=== PATIENT | female | born 1975 | race Caucasian/White ===

== ENCOUNTER 2018-10-14 19:25 | Inpatient (IN) ==
[2018-10-14] MEDS ORDERED: SODIUM CHLORIDE 0.9% 500 ML IV STA (19:54)
[2018-10-14] MEDS ORDERED: KETOROLAC 30 MG/1 ML VIAL IV STA (20:28)
[2018-10-14] MEDS ORDERED: KETOROLAC 30 MG/1 ML VIAL ONE (20:28)
[2018-10-14 20:37] LABS: Hematocrit 39.8 VOL% (35.7-47.0); Immature Granulocytes % 0.4 %; Immature Granulocytes Absolute 0.04 #; Lymphocytes # 2.1 10*3/uL (1.4-4.0); Lymphocytes % 21.2 % (21.3-54.2); Mean Corpuscular HGB Conc 32.7 GM/DL (32-36); Mean Corpuscular Hemoglobin 29 PG (27-34); Mean Corpuscular Volume 89.8 FL (87-102); Mean Platelet Volume 8.9 FL (9.6-12.0); Monocytes # 1.1 10*3/uL (0.11-0.8); Monocytes % 10.8 % (1.7-12.7); Neutrophils # 6.7 10*3/uL (1.4-7.4); Neutrophils % 67.6 % (38.7-73.9); Platelet Count 226 T/CUMM (130-400); Red Blood Count 4.43 MC/CUMM (3.8-5.5); Red Cell Distribution Width 11.7 % (9.3-17.3)
[2018-10-14 20:48] LABS: PT Patient Result 10.5 SECS
[2018-10-14 20:58] LABS: Lactic Acid 1.7 MMOL/L (0.4-2.0)
[2018-10-14 21:00] LABS: Alanine Aminotransferase 24 U/L (13-56); Albumin 3.8 G/DL (3.4-5.0); Alkaline Phosphatase 94 U/L (45-117); Amylase 32 U/L (25-115); Aspartate Amino Transferase 18 U/L (0-37); Blood Urea Nitrogen 10 MG/DL (7-18); Calcium 8.8 MG/DL (8.5-10.1); Glucose 89 MG/DL (74-106); Osmolality,Calculated 270.8 MOS/KG (273-304); Potassium 4.2 MMOL/L (3.5-5.1); Sodium 137 MMOL/L (136-145); Total Protein 8.2 G/DL (6.4-8.3); Troponin I < 0.015 NG/ML (0.00-0.045)
[2018-10-14 21:22] LABS: Amorphous Crystals,Urine Occasional /HPF (Few); Apearance,Urine CLOUDY (Clear); Bilirubin,Urine Negative (Negative); Blood, Urine Small mg/dL (Negative); Glucose,Urine (UA) Negative (Negative); Ketones,Urine 5 mg/dL (Negative); Mucus,Urine Occasional /LPF (Occasional); Nitrite,Urine Negative (Negative); Protein,Urine Negative; Squamous Epithelial Cell,Urine Occasional /HPF (0-10); Urine Color Amber (Yellow)
[2018-10-14 21:42] LABS: Sedimentation Rate-Westergren 56 MM/HR (0-20)
[2018-10-14] MEDS ORDERED: PROMETHAZINE 25 MG/1 ML VIAL IM PRN (23:54)
[2018-10-14] MEDS ORDERED: ONDANSETRON 4 MG/2 ML VIAL IV PRN (23:54)
[2018-10-15] MEDS: DOXYCYCLINE HYCLATE 100 MG CAPSULE PO SCH ×3 (01:08→21:51)
[2018-10-15] MEDS: SODIUM CHLORIDE 0.9% 1,000 ML IV SCH ×2 (01:10→18:38)
[2018-10-15 05:28] LABS: Basophils % 0.1 % (0.0-0.8); Hematocrit 36.1 VOL% (35.7-47.0); Hemoglobin 11.8 GM/DL (12.0-16.0); Immature Granulocytes % 0.4 %; Immature Granulocytes Absolute 0.03 #; Lymphocytes # 1.8 10*3/uL (1.4-4.0); Lymphocytes % 22.1 % (21.3-54.2); Mean Corpuscular HGB Conc 32.7 GM/DL (32-36); Mean Corpuscular Hemoglobin 29 PG (27-34); Mean Corpuscular Volume 89.8 FL (87-102); Mean Platelet Volume 8.8 FL (9.6-12.0); Monocytes # 1.1 10*3/uL (0.11-0.8); Monocytes % 13.1 % (1.7-12.7); Neutrophils # 5.4 10*3/uL (1.4-7.4); Neutrophils % 64.3 % (38.7-73.9); Platelet Count 190 T/CUMM (130-400); Red Blood Count 4.02 MC/CUMM (3.8-5.5); Red Cell Distribution Width 11.6 % (9.3-17.3); White Blood Count 8.3 T/CUMM (4-12)
[2018-10-15 06:04] LABS: Calcium 7.9 MG/DL (8.5-10.1); Osmolality,Calculated 271.8 MOS/KG (273-304); Potassium 3.6 MMOL/L (3.5-5.1); Uric Acid 5.3 MG/DL (2.6-6.0)
[2018-10-15] MEDS: ENOXAPARIN 40 MG/0.4 ML SYRINGE SUBCUT SCH (08:11)
[2018-10-15] MEDS: VENLAFAXINE XR 75 MG CAPSULE PO SCH (08:11)
[2018-10-15] MEDS: PANTOPRAZOLE 40 MG TABLET PO SCH (08:12)
[2018-10-15] MEDS: TOPIRAMATE 25 MG TABLET PO SCH ×2 (08:12→21:51)
[2018-10-15] MEDS: MEMANTINE 10 MG TABLET PO SCH ×2 (08:12→21:51)
[2018-10-15] MEDS ORDERED: AMPHETAMINE PO SCH (09:00)
[2018-10-15] MEDS ORDERED: DEXTROAMPHETAMINE PO SCH (09:00)
[2018-10-15] MEDS: MORPHINE 4 MG/1 ML VIAL IV PRN (10:02)
[2018-10-15] MEDS ORDERED: LIDOCAINE 1% 20 ML VIAL INFILTRAT ONE (10:55)
[2018-10-15 19:50] LABS: HIV Antigen/Antibody Result Nonreactive (Nonreactive)
[2018-10-15] MEDS: MAGNESIUM OXIDE 400 MG TABLET PO SCH (21:51)
[2018-10-15] MEDS: AMITRIPTYLINE 100 MG TABLET PO SCH (21:51)
[2018-10-16] MEDS: SODIUM CHLORIDE 0.9% 1,000 ML IV SCH ×2 (02:51→16:07)
[2018-10-16 05:31] LABS: Hematocrit 35.6 VOL% (35.7-47.0); Hemoglobin 11.6 GM/DL (12.0-16.0); Immature Granulocytes % 0.3 %; Immature Granulocytes Absolute 0.02 #; Lymphocytes # 2.2 10*3/uL (1.4-4.0); Lymphocytes % 29.7 % (21.3-54.2); Mean Corpuscular HGB Conc 32.6 GM/DL (32-36); Mean Corpuscular Hemoglobin 29 PG (27-34); Mean Corpuscular Volume 89.4 FL (87-102); Mean Platelet Volume 8.9 FL (9.6-12.0); Monocytes # 0.9 10*3/uL (0.11-0.8); Monocytes % 11.7 % (1.7-12.7); Neutrophils # 4.4 10*3/uL (1.4-7.4); Neutrophils % 58.3 % (38.7-73.9); Platelet Count 192 T/CUMM (130-400); Red Blood Count 3.98 MC/CUMM (3.8-5.5); Red Cell Distribution Width 11.5 % (9.3-17.3); White Blood Count 7.5 T/CUMM (4-12)
[2018-10-16 05:47] LABS: Calcium 8.2 MG/DL (8.5-10.1); Osmolality,Calculated 273.5 MOS/KG (273-304); Potassium 3.2 MMOL/L (3.5-5.1)
[2018-10-16] MEDS ORDERED: BISACODYL 10 MG SUPP RECTAL PRN (09:25)
[2018-10-16] MEDS: ENOXAPARIN 40 MG/0.4 ML SYRINGE SUBCUT SCH (10:07)
[2018-10-16] MEDS: VENLAFAXINE XR 75 MG CAPSULE PO SCH (10:07)
[2018-10-16] MEDS: PANTOPRAZOLE 40 MG TABLET PO SCH (10:08)
[2018-10-16] MEDS: MEMANTINE 10 MG TABLET PO SCH ×2 (10:08→21:50)
[2018-10-16] MEDS: TOPIRAMATE 25 MG TABLET PO SCH ×2 (10:08→21:50)
[2018-10-16] MEDS: DOXYCYCLINE HYCLATE 100 MG CAPSULE PO SCH ×2 (10:09→21:50)
[2018-10-16] MEDS: BISACODYL 5 MG TABLET PO SCH (21:50)
[2018-10-16] MEDS: AMITRIPTYLINE 100 MG TABLET PO SCH (21:50)
[2018-10-16] MEDS: MAGNESIUM OXIDE 400 MG TABLET PO SCH (21:50)
[2018-10-17] MEDS: SODIUM CHLORIDE 0.9% 1,000 ML IV SCH ×2 (05:00→18:35)
[2018-10-17 05:29] LABS: Hematocrit 34.6 VOL% (35.7-47.0); Hemoglobin 11.2 GM/DL (12.0-16.0); Immature Granulocytes % 0.3 %; Immature Granulocytes Absolute 0.02 #; Lymphocytes # 2.5 10*3/uL (1.4-4.0); Lymphocytes % 32.9 % (21.3-54.2); Mean Corpuscular HGB Conc 32.4 GM/DL (32-36); Mean Corpuscular Hemoglobin 29 PG (27-34); Mean Corpuscular Volume 88.7 FL (87-102); Mean Platelet Volume 9.1 FL (9.6-12.0); Monocytes # 0.9 10*3/uL (0.11-0.8); Monocytes % 11.6 % (1.7-12.7); Neutrophils # 4.2 10*3/uL (1.4-7.4); Neutrophils % 55.2 % (38.7-73.9); Platelet Count 227 T/CUMM (130-400); Red Cell Distribution Width 11.6 % (9.3-17.3); White Blood Count 7.7 T/CUMM (4-12)
[2018-10-17 05:43] LABS: Calcium 8.5 MG/DL (8.5-10.1)
[2018-10-17 05:44] LABS: Osmolality,Calculated 271.7 MOS/KG (273-304); Potassium 3.5 MMOL/L (3.5-5.1)
[2018-10-17] MEDS: VENLAFAXINE XR 75 MG CAPSULE PO SCH (08:59)
[2018-10-17] MEDS: ENOXAPARIN 40 MG/0.4 ML SYRINGE SUBCUT SCH (08:59)
[2018-10-17] MEDS: MEMANTINE 10 MG TABLET PO SCH ×2 (08:59→20:41)
[2018-10-17] MEDS: DOXYCYCLINE HYCLATE 100 MG CAPSULE PO SCH ×2 (09:00→20:40)
[2018-10-17] MEDS: PANTOPRAZOLE 40 MG TABLET PO SCH (09:00)
[2018-10-17] MEDS: TOPIRAMATE 25 MG TABLET PO SCH ×2 (09:04→20:41)
[2018-10-17 16:25] LABS: Ehrlichia Chaffeensis (HME)IgG <1:64 titer (<1:64)
[2018-10-17] MEDS: MAGNESIUM OXIDE 400 MG TABLET PO SCH (20:39)
[2018-10-17] MEDS: BISACODYL 5 MG TABLET PO SCH (20:40)
[2018-10-17] MEDS: AMITRIPTYLINE 100 MG TABLET PO SCH (20:41)
[2018-10-17] MEDS: MORPHINE 4 MG/1 ML VIAL IV PRN (22:09)
[2018-10-17 23:05] LABS: Bart Quintana IgG <1:128 titer (<1:128); Bart Quintana IgM <1:20 titer (<1:20)
[2018-10-18 06:00] LABS: Hemoglobin 11.2 GM/DL (12.0-16.0); Immature Granulocytes % 0.4 %; Immature Granulocytes Absolute 0.03 #; Lymphocytes # 1.9 10*3/uL (1.4-4.0); Lymphocytes % 26.7 % (21.3-54.2); Mean Corpuscular HGB Conc 32.9 GM/DL (32-36); Mean Corpuscular Hemoglobin 29 PG (27-34); Mean Corpuscular Volume 88.1 FL (87-102); Mean Platelet Volume 8.6 FL (9.6-12.0); Monocytes # 0.7 10*3/uL (0.11-0.8); Monocytes % 9.9 % (1.7-12.7); Neutrophils # 4.6 10*3/uL (1.4-7.4); Platelet Count 227 T/CUMM (130-400); Red Blood Count 3.86 MC/CUMM (3.8-5.5); Red Cell Distribution Width 11.7 % (9.3-17.3); White Blood Count 7.3 T/CUMM (4-12)
[2018-10-18 06:38] LABS: Calcium 8.3 MG/DL (8.5-10.1); Osmolality,Calculated 277.3 MOS/KG (273-304); Potassium 3.2 MMOL/L (3.5-5.1)
[2018-10-18] MEDS: SODIUM CHLORIDE 0.9% 1,000 ML IV SCH (06:45)
[2018-10-18] MEDS: MORPHINE 4 MG/1 ML VIAL IV PRN ×2 (09:02→15:01)
[2018-10-18] MEDS: ENOXAPARIN 40 MG/0.4 ML SYRINGE SUBCUT SCH (09:08)
[2018-10-18] MEDS: MEMANTINE 10 MG TABLET PO SCH ×2 (09:08→21:30)
[2018-10-18] MEDS: VENLAFAXINE XR 75 MG CAPSULE PO SCH (09:08)
[2018-10-18] MEDS: DOXYCYCLINE HYCLATE 100 MG CAPSULE PO SCH (09:09)
[2018-10-18] MEDS: TOPIRAMATE 25 MG TABLET PO SCH ×2 (09:09→21:30)
[2018-10-18] MEDS: PANTOPRAZOLE 40 MG TABLET PO SCH (09:09)
[2018-10-18] MEDS ORDERED: POTASSIUM CHLORIDE 20 MEQ TABLET PO ONE (10:49)
[2018-10-18] MEDS: cefTRIAXone 1,000 MG in SYRINGE 1 EACH IV SCH (15:30)
[2018-10-18] MEDS: VANCOMYCIN INJ 1,500 MG in SODIUM CHLORIDE 0.9% 500 ML IV SCH (15:35)
[2018-10-18] MEDS: BISACODYL 5 MG TABLET PO SCH (21:30)
[2018-10-18] MEDS: AMITRIPTYLINE 100 MG TABLET PO SCH (21:30)
[2018-10-18] MEDS: MAGNESIUM OXIDE 400 MG TABLET PO SCH (21:30)
[2018-10-19] MEDS: SODIUM CHLORIDE 0.9% 1,000 ML IV SCH ×4 (00:55→22:53)
[2018-10-19] MEDS: VANCOMYCIN INJ 1,500 MG in SODIUM CHLORIDE 0.9% 500 ML IV SCH ×2 (03:49→15:45)
[2018-10-19 05:11] LABS: Hematocrit 34.2 VOL% (35.7-47.0); Hemoglobin 11.3 GM/DL (12.0-16.0); Immature Granulocytes % 0.5 %; Immature Granulocytes Absolute 0.04 #; Lymphocytes # 2.1 10*3/uL (1.4-4.0); Lymphocytes % 27.2 % (21.3-54.2); Mean Corpuscular Hemoglobin 29 PG (27-34); Mean Corpuscular Volume 88.1 FL (87-102); Mean Platelet Volume 8.7 FL (9.6-12.0); Monocytes # 0.8 10*3/uL (0.11-0.8); Monocytes % 10.3 % (1.7-12.7); Neutrophils # 4.7 10*3/uL (1.4-7.4); Platelet Count 251 T/CUMM (130-400); Red Blood Count 3.88 MC/CUMM (3.8-5.5); Red Cell Distribution Width 11.6 % (9.3-17.3); White Blood Count 7.6 T/CUMM (4-12)
[2018-10-19 05:32] LABS: Albumin 2.9 G/DL (3.4-5.0); Bilirubin,Total 0.4 MG/DL (0.2-1.0); Calcium 8.4 MG/DL (8.5-10.1); Osmolality,Calculated 273.5 MOS/KG (273-304); Potassium 3.7 MMOL/L (3.5-5.1); Total Protein 6.9 G/DL (6.4-8.3)
[2018-10-19] MEDS: VENLAFAXINE XR 75 MG CAPSULE PO SCH (10:15)
[2018-10-19] MEDS: PANTOPRAZOLE 40 MG TABLET PO SCH (10:15)
[2018-10-19] MEDS: ENOXAPARIN 40 MG/0.4 ML SYRINGE SUBCUT SCH (10:15)
[2018-10-19] MEDS: TOPIRAMATE 25 MG TABLET PO SCH ×2 (10:15→21:42)
[2018-10-19] MEDS: MEMANTINE 10 MG TABLET PO SCH ×2 (10:16→21:43)
[2018-10-19] MEDS: MORPHINE 4 MG/1 ML VIAL IV PRN ×3 (14:40→22:46)
[2018-10-19] MEDS: cefTRIAXone 1,000 MG in SYRINGE 1 EACH IV SCH (15:40)
[2018-10-19] MEDS: MAGNESIUM OXIDE 400 MG TABLET PO SCH (21:42)
[2018-10-19] MEDS: AMITRIPTYLINE 100 MG TABLET PO SCH (21:43)
[2018-10-19] MEDS: BISACODYL 5 MG TABLET PO SCH (21:43)
[2018-10-20] MEDS: MORPHINE 4 MG/1 ML VIAL IV PRN ×3 (02:58→17:29)
[2018-10-20 03:11] LABS: Basophils % 0.1 % (0.0-0.8); Hemoglobin 11.6 GM/DL (12.0-16.0); Immature Granulocytes % 0.3 %; Immature Granulocytes Absolute 0.03 #; Lymphocytes # 2.5 10*3/uL (1.4-4.0); Lymphocytes % 26.1 % (21.3-54.2); Mean Corpuscular HGB Conc 32.2 GM/DL (32-36); Mean Corpuscular Hemoglobin 29 PG (27-34); Mean Corpuscular Volume 89.8 FL (87-102); Mean Platelet Volume 8.6 FL (9.6-12.0); Monocytes # 0.8 10*3/uL (0.11-0.8); Monocytes % 8.9 % (1.7-12.7); Neutrophils # 6.1 10*3/uL (1.4-7.4); Neutrophils % 64.6 % (38.7-73.9); Platelet Count 271 T/CUMM (130-400); Red Blood Count 4.01 MC/CUMM (3.8-5.5); Red Cell Distribution Width 11.7 % (9.3-17.3); White Blood Count 9.5 T/CUMM (4-12)
[2018-10-20] MEDS: VANCOMYCIN INJ 1,500 MG in SODIUM CHLORIDE 0.9% 500 ML IV SCH ×2 (03:57→15:18)
[2018-10-20] MEDS: TOPIRAMATE 25 MG TABLET PO SCH ×2 (09:43→20:24)
[2018-10-20] MEDS: MEMANTINE 10 MG TABLET PO SCH ×2 (09:43→20:24)
[2018-10-20] MEDS: VENLAFAXINE XR 75 MG CAPSULE PO SCH (09:43)
[2018-10-20] MEDS: PANTOPRAZOLE 40 MG TABLET PO SCH (09:43)
[2018-10-20] MEDS: ENOXAPARIN 40 MG/0.4 ML SYRINGE SUBCUT SCH (12:38)
[2018-10-20] MEDS: diphenhydrAMINE CAP 25 MG CAPSULE PO PRN ×2 (13:20→20:24)
[2018-10-20] MEDS: cefTRIAXone 1,000 MG in SYRINGE 1 EACH IV SCH (14:44)
[2018-10-20] MEDS: MAGNESIUM OXIDE 400 MG TABLET PO SCH (20:24)
[2018-10-20] MEDS: AMITRIPTYLINE 100 MG TABLET PO SCH (20:24)
[2018-10-20] MEDS: BISACODYL 5 MG TABLET PO SCH (20:24)
[2018-10-20] MEDS: SODIUM CHLORIDE 0.9% 1,000 ML IV SCH (20:28)
[2018-10-21] MEDS: VANCOMYCIN INJ 1,500 MG in SODIUM CHLORIDE 0.9% 500 ML IV SCH (03:13)
[2018-10-21] MEDS ORDERED: TUBERCULIN SKIN TEST 0.1 ML SYRINGE INTRADERM ONE (09:26)
[2018-10-21] MEDS: ENOXAPARIN 40 MG/0.4 ML SYRINGE SUBCUT SCH (10:00)
[2018-10-21] MEDS: MEMANTINE 10 MG TABLET PO SCH ×2 (10:00→21:05)
[2018-10-21] MEDS: PANTOPRAZOLE 40 MG TABLET PO SCH (10:00)
[2018-10-21] MEDS: VENLAFAXINE XR 75 MG CAPSULE PO SCH (10:00)
[2018-10-21] MEDS: TOPIRAMATE 25 MG TABLET PO SCH ×2 (10:00→21:05)
[2018-10-21] MEDS: AMPICILLIN/SULBACTAM 3,000 MG in SODIUM CHLORIDE 0.9% 100 ML IV SCH ×2 (13:43→21:05)
[2018-10-21] MEDS: SODIUM CHLORIDE 0.9% 1,000 ML IV SCH (13:43)
[2018-10-21] MEDS: LEVOFLOXACIN INJ 750 MG in PREMIX 1 EACH IV SCH (14:34)
[2018-10-21] MEDS: MORPHINE 4 MG/1 ML VIAL IV PRN ×2 (15:33→21:58)
[2018-10-21] MEDS: MAGNESIUM OXIDE 400 MG TABLET PO SCH (21:05)
[2018-10-21] MEDS: BISACODYL 5 MG TABLET PO SCH (21:05)
[2018-10-21] MEDS: AMITRIPTYLINE 100 MG TABLET PO SCH (21:05)
[2018-10-22 05:20] LABS: Basophils % 0.1 % (0.0-0.8); Hematocrit 32.8 VOL% (35.7-47.0); Hemoglobin 10.5 GM/DL (12.0-16.0); Immature Granulocytes % 0.4 %; Immature Granulocytes Absolute 0.04 #; Lymphocytes # 2.5 10*3/uL (1.4-4.0); Lymphocytes % 26.3 % (21.3-54.2); Mean Corpuscular Hemoglobin 29 PG (27-34); Mean Corpuscular Volume 89.4 FL (87-102); Mean Platelet Volume 8.8 FL (9.6-12.0); Monocytes # 0.9 10*3/uL (0.11-0.8); Monocytes % 9.5 % (1.7-12.7); Neutrophils % 63.7 % (38.7-73.9); Platelet Count 289 T/CUMM (130-400); Red Blood Count 3.67 MC/CUMM (3.8-5.5); Red Cell Distribution Width 11.6 % (9.3-17.3); White Blood Count 9.4 T/CUMM (4-12)
[2018-10-22] MEDS: AMPICILLIN/SULBACTAM 3,000 MG in SODIUM CHLORIDE 0.9% 100 ML IV SCH ×3 (05:39→21:59)
[2018-10-22 05:57] LABS: Albumin 2.8 G/DL (3.4-5.0); Bilirubin,Total 0.5 MG/DL (0.2-1.0); Calcium 7.9 MG/DL (8.5-10.1); Osmolality,Calculated 272.7 MOS/KG (273-304); Potassium 3.4 MMOL/L (3.5-5.1); Total Protein 6.7 G/DL (6.4-8.3)
[2018-10-22] MEDS: SODIUM CHLORIDE 0.9% 1,000 ML IV SCH ×2 (06:17→20:48)
[2018-10-22] MEDS: PANTOPRAZOLE 40 MG TABLET PO SCH (09:28)
[2018-10-22] MEDS: MEMANTINE 10 MG TABLET PO SCH ×2 (09:28→20:48)
[2018-10-22] MEDS: TOPIRAMATE 25 MG TABLET PO SCH ×2 (09:29→20:48)
[2018-10-22] MEDS: VENLAFAXINE XR 75 MG CAPSULE PO SCH (09:29)
[2018-10-22] MEDS: ENOXAPARIN 40 MG/0.4 ML SYRINGE SUBCUT SCH (09:32)
[2018-10-22] MEDS: POTASSIUM CHLORIDE RIDER 10 MEQ in PREMIX 1 EACH IV PRN ×3 (09:38→13:26)
[2018-10-22] MEDS: MORPHINE 4 MG/1 ML VIAL IV PRN ×2 (10:40→17:01)
[2018-10-22] MEDS: LEVOFLOXACIN INJ 750 MG in PREMIX 1 EACH IV SCH (17:01)
[2018-10-22] MEDS: BISACODYL 5 MG TABLET PO SCH (20:48)
[2018-10-22] MEDS: AMITRIPTYLINE 100 MG TABLET PO SCH (20:48)
[2018-10-22] MEDS: MAGNESIUM OXIDE 400 MG TABLET PO SCH (20:48)
[2018-10-23 04:30] LABS: Basophils % 0.1 % (0.0-0.8); Hematocrit 34.9 VOL% (35.7-47.0); Hemoglobin 11.3 GM/DL (12.0-16.0); Immature Granulocytes % 0.4 %; Immature Granulocytes Absolute 0.03 #; Lymphocytes # 2.2 10*3/uL (1.4-4.0); Lymphocytes % 29.2 % (21.3-54.2); Mean Corpuscular HGB Conc 32.4 GM/DL (32-36); Mean Corpuscular Hemoglobin 29 PG (27-34); Mean Corpuscular Volume 88.8 FL (87-102); Mean Platelet Volume 8.6 FL (9.6-12.0); Monocytes # 0.7 10*3/uL (0.11-0.8); Monocytes % 9.4 % (1.7-12.7); Neutrophils # 4.6 10*3/uL (1.4-7.4); Neutrophils % 60.9 % (38.7-73.9); Platelet Count 300 T/CUMM (130-400); Red Blood Count 3.93 MC/CUMM (3.8-5.5); Red Cell Distribution Width 11.4 % (9.3-17.3); White Blood Count 7.6 T/CUMM (4-12)
[2018-10-23 05:04] LABS: Albumin 2.9 G/DL (3.4-5.0); Bilirubin,Total 0.8 MG/DL (0.2-1.0); Calcium 8.2 MG/DL (8.5-10.1); Osmolality,Calculated 272.7 MOS/KG (273-304); Potassium 3.8 MMOL/L (3.5-5.1); Total Protein 6.8 G/DL (6.4-8.3)
[2018-10-23] MEDS: AMPICILLIN/SULBACTAM 3,000 MG in SODIUM CHLORIDE 0.9% 100 ML IV SCH ×3 (05:37→21:55)
[2018-10-23] MEDS: MEMANTINE 10 MG TABLET PO SCH ×2 (08:18→22:07)
[2018-10-23] MEDS: VENLAFAXINE XR 75 MG CAPSULE PO SCH (08:18)
[2018-10-23] MEDS: PANTOPRAZOLE 40 MG TABLET PO SCH (08:18)
[2018-10-23] MEDS: TOPIRAMATE 25 MG TABLET PO SCH ×2 (08:18→22:07)
[2018-10-23] MEDS: ENOXAPARIN 40 MG/0.4 ML SYRINGE SUBCUT SCH (08:18)
[2018-10-23] MEDS: LEVOFLOXACIN INJ 750 MG in PREMIX 1 EACH IV SCH (08:49)
[2018-10-23] MEDS: SODIUM CHLORIDE 0.9% 1,000 ML IV SCH (10:56)
[2018-10-23] MEDS: MORPHINE 4 MG/1 ML VIAL IV PRN ×2 (17:26→22:03)
[2018-10-23] MEDS: BISACODYL 5 MG TABLET PO SCH (22:07)
[2018-10-23] MEDS: MAGNESIUM OXIDE 400 MG TABLET PO SCH (22:07)
[2018-10-23] MEDS: AMITRIPTYLINE 100 MG TABLET PO SCH (22:08)
[2018-10-24] MEDS: MORPHINE 4 MG/1 ML VIAL IV PRN ×4 (05:10→19:09)
[2018-10-24] MEDS: AMPICILLIN/SULBACTAM 3,000 MG in SODIUM CHLORIDE 0.9% 100 ML IV SCH ×3 (05:12→21:46)
[2018-10-24 05:14] LABS: Basophils % 0.1 % (0.0-0.8); Hematocrit 35.4 VOL% (35.7-47.0); Hemoglobin 11.5 GM/DL (12.0-16.0); Immature Granulocytes % 0.4 %; Immature Granulocytes Absolute 0.03 #; Lymphocytes # 3.2 10*3/uL (1.4-4.0); Mean Corpuscular HGB Conc 32.5 GM/DL (32-36); Mean Corpuscular Hemoglobin 29 PG (27-34); Mean Corpuscular Volume 89.2 FL (87-102); Mean Platelet Volume 8.7 FL (9.6-12.0); Monocytes # 0.7 10*3/uL (0.11-0.8); Neutrophils # 4.3 10*3/uL (1.4-7.4); Neutrophils % 51.5 % (38.7-73.9); Platelet Count 324 T/CUMM (130-400); Red Blood Count 3.97 MC/CUMM (3.8-5.5); Red Cell Distribution Width 11.5 % (9.3-17.3); White Blood Count 8.2 T/CUMM (4-12)
[2018-10-24 05:30] LABS: Albumin 2.8 G/DL (3.4-5.0); Bilirubin,Total 0.5 MG/DL (0.2-1.0); Calcium 8.6 MG/DL (8.5-10.1); Osmolality,Calculated 271.8 MOS/KG (273-304); Potassium 3.5 MMOL/L (3.5-5.1); Total Protein 6.9 G/DL (6.4-8.3)
[2018-10-24] MEDS: SODIUM CHLORIDE 0.9% 1,000 ML IV SCH (06:29)
[2018-10-24] MEDS: ENOXAPARIN 40 MG/0.4 ML SYRINGE SUBCUT SCH (09:30)
[2018-10-24] MEDS: MEMANTINE 10 MG TABLET PO SCH ×2 (09:30→21:46)
[2018-10-24] MEDS: VENLAFAXINE XR 75 MG CAPSULE PO SCH (09:30)
[2018-10-24] MEDS: PANTOPRAZOLE 40 MG TABLET PO SCH (09:30)
[2018-10-24] MEDS: LEVOFLOXACIN INJ 750 MG in PREMIX 1 EACH IV SCH (09:30)
[2018-10-24] MEDS: TOPIRAMATE 25 MG TABLET PO SCH ×2 (09:30→21:46)
[2018-10-24] MEDS: MAGNESIUM OXIDE 400 MG TABLET PO SCH (21:46)
[2018-10-24] MEDS: AMITRIPTYLINE 100 MG TABLET PO SCH (21:47)
[2018-10-24] MEDS: FLUCONAZOLE 100 MG TABLET PO SCH (21:49)
[2018-10-24] MEDS: BISACODYL 5 MG TABLET PO SCH (21:56)
[2018-10-25] MEDS: MORPHINE 4 MG/1 ML VIAL IV PRN ×4 (05:01→22:23)
[2018-10-25 05:05] LABS: Basophils % 0.1 % (0.0-0.8); Hematocrit 37.3 VOL% (35.7-47.0); Immature Granulocytes % 0.2 %; Immature Granulocytes Absolute 0.02 #; Lymphocytes # 2.7 10*3/uL (1.4-4.0); Lymphocytes % 31.9 % (21.3-54.2); Mean Corpuscular HGB Conc 32.2 GM/DL (32-36); Mean Corpuscular Hemoglobin 29 PG (27-34); Mean Platelet Volume 8.4 FL (9.6-12.0); Monocytes # 0.7 10*3/uL (0.11-0.8); Monocytes % 7.9 % (1.7-12.7); Neutrophils # 5.1 10*3/uL (1.4-7.4); Neutrophils % 59.9 % (38.7-73.9); Platelet Count 331 T/CUMM (130-400); Red Blood Count 4.19 MC/CUMM (3.8-5.5); Red Cell Distribution Width 11.4 % (9.3-17.3); White Blood Count 8.5 T/CUMM (4-12)
[2018-10-25 05:43] LABS: Albumin 3.2 G/DL (3.4-5.0); Bilirubin,Total 0.5 MG/DL (0.2-1.0); Calcium 8.7 MG/DL (8.5-10.1); Osmolality,Calculated 271.8 MOS/KG (273-304); Potassium 3.9 MMOL/L (3.5-5.1); Total Protein 7.5 G/DL (6.4-8.3)
[2018-10-25] MEDS: AMPICILLIN/SULBACTAM 3,000 MG in SODIUM CHLORIDE 0.9% 100 ML IV SCH ×3 (06:08→21:11)
[2018-10-25] MEDS: VENLAFAXINE XR 75 MG CAPSULE PO SCH (08:52)
[2018-10-25] MEDS: TOPIRAMATE 25 MG TABLET PO SCH ×2 (08:52→21:06)
[2018-10-25] MEDS: PANTOPRAZOLE 40 MG TABLET PO SCH (08:52)
[2018-10-25] MEDS: MEMANTINE 10 MG TABLET PO SCH ×2 (08:52→21:05)
[2018-10-25] MEDS: FLUCONAZOLE 100 MG TABLET PO SCH (08:52)
[2018-10-25] MEDS: ENOXAPARIN 40 MG/0.4 ML SYRINGE SUBCUT SCH (08:53)
[2018-10-25] MEDS: LEVOFLOXACIN INJ 750 MG in PREMIX 1 EACH IV SCH (08:53)
[2018-10-25] MEDS ORDERED: ALPRAZolam 0.5 MG TABLET PO ONE (18:30)
[2018-10-25] MEDS ORDERED: ALPRAZolam 0.5 MG TABLET PO PRN (18:31)
[2018-10-25] MEDS ORDERED: ZALEPLON 5 MG CAPSULE PO ONE (21:00)
[2018-10-25] MEDS: MAGNESIUM OXIDE 400 MG TABLET PO SCH (21:04)
[2018-10-25] MEDS: BISACODYL 5 MG TABLET PO SCH (21:04)
[2018-10-25] MEDS: AMITRIPTYLINE 100 MG TABLET PO SCH (21:05)
[2018-10-26] MEDS: AMPICILLIN/SULBACTAM 3,000 MG in SODIUM CHLORIDE 0.9% 100 ML IV SCH ×3 (05:04→21:24)
[2018-10-26] MEDS: MEMANTINE 10 MG TABLET PO SCH ×2 (08:45→21:27)
[2018-10-26] MEDS: VENLAFAXINE XR 75 MG CAPSULE PO SCH (08:45)
[2018-10-26] MEDS: TOPIRAMATE 25 MG TABLET PO SCH ×2 (08:45→21:28)
[2018-10-26] MEDS: ENOXAPARIN 40 MG/0.4 ML SYRINGE SUBCUT SCH (08:45)
[2018-10-26] MEDS: FLUCONAZOLE 100 MG TABLET PO SCH (08:45)
[2018-10-26] MEDS: LEVOFLOXACIN INJ 750 MG in PREMIX 1 EACH IV SCH (08:46)
[2018-10-26] MEDS: PANTOPRAZOLE 40 MG TABLET PO SCH (08:48)
[2018-10-26] MEDS: MORPHINE 4 MG/1 ML VIAL IV PRN ×2 (11:32→18:14)
[2018-10-26] MEDS: MAGNESIUM OXIDE 400 MG TABLET PO SCH (21:27)
[2018-10-26] MEDS: BISACODYL 5 MG TABLET PO SCH (21:27)
[2018-10-26] MEDS: AMITRIPTYLINE 100 MG TABLET PO SCH (21:28)
[2018-10-27] MEDS: AMPICILLIN/SULBACTAM 3,000 MG in SODIUM CHLORIDE 0.9% 100 ML IV SCH ×3 (05:31→21:55)
[2018-10-27 08:39] LABS: Hematocrit 38.8 VOL% (35.7-47.0); Hemoglobin 12.5 GM/DL (12.0-16.0); Immature Granulocytes % 0.3 %; Immature Granulocytes Absolute 0.02 #; Lymphocytes # 2.5 10*3/uL (1.4-4.0); Lymphocytes % 36.9 % (21.3-54.2); Mean Corpuscular HGB Conc 32.2 GM/DL (32-36); Mean Corpuscular Hemoglobin 29 PG (27-34); Mean Corpuscular Volume 89.8 FL (87-102); Mean Platelet Volume 8.8 FL (9.6-12.0); Monocytes # 0.3 10*3/uL (0.11-0.8); Monocytes % 5.1 % (1.7-12.7); Neutrophils # 3.9 10*3/uL (1.4-7.4); Neutrophils % 57.7 % (38.7-73.9); Platelet Count 320 T/CUMM (130-400); Red Blood Count 4.32 MC/CUMM (3.8-5.5); Red Cell Distribution Width 11.4 % (9.3-17.3); White Blood Count 6.7 T/CUMM (4-12)
[2018-10-27] MEDS: FLUCONAZOLE 100 MG TABLET PO SCH (08:53)
[2018-10-27] MEDS: MEMANTINE 10 MG TABLET PO SCH ×2 (08:53→22:32)
[2018-10-27] MEDS: PANTOPRAZOLE 40 MG TABLET PO SCH (08:53)
[2018-10-27] MEDS: ENOXAPARIN 40 MG/0.4 ML SYRINGE SUBCUT SCH (08:53)
[2018-10-27] MEDS: TOPIRAMATE 25 MG TABLET PO SCH ×2 (08:53→22:32)
[2018-10-27] MEDS: LEVOFLOXACIN INJ 750 MG in PREMIX 1 EACH IV SCH (08:53)
[2018-10-27] MEDS: VENLAFAXINE XR 75 MG CAPSULE PO SCH (08:53)
[2018-10-27 08:58] LABS: Alanine Aminotransferase 35 U/L (13-56); Albumin 3.3 G/DL (3.4-5.0); Alkaline Phosphatase 102 U/L (45-117); Aspartate Amino Transferase 18 U/L (0-37); Bilirubin,Total < 0.39 MG/DL (0.2-1.0); Blood Urea Nitrogen 12 MG/DL (7-18); Calcium 8.4 MG/DL (8.5-10.1); Glucose 96 MG/DL (74-106); Osmolality,Calculated 274.7 MOS/KG (273-304); Potassium 3.9 MMOL/L (3.5-5.1); Sodium 138 MMOL/L (136-145); Total Protein 7.4 G/DL (6.4-8.3)
[2018-10-27] MEDS: BISACODYL 5 MG TABLET PO SCH (22:31)
[2018-10-27] MEDS: guaiFENesin/DM ER 600-30 MG TABLET PO SCH (22:32)
[2018-10-27] MEDS: MAGNESIUM OXIDE 400 MG TABLET PO SCH (22:32)
[2018-10-27] MEDS: AMITRIPTYLINE 100 MG TABLET PO SCH (22:32)
[2018-10-28] MEDS: AMPICILLIN/SULBACTAM 3,000 MG in SODIUM CHLORIDE 0.9% 100 ML IV SCH ×3 (04:51→20:35)
[2018-10-28 05:21] LABS: Basophils % 0.1 % (0.0-0.8); Hematocrit 38.7 VOL% (35.7-47.0); Hemoglobin 12.6 GM/DL (12.0-16.0); Immature Granulocytes % 0.3 %; Immature Granulocytes Absolute 0.03 #; Lymphocytes # 3.3 10*3/uL (1.4-4.0); Lymphocytes % 38.3 % (21.3-54.2); Mean Corpuscular HGB Conc 32.6 GM/DL (32-36); Mean Corpuscular Hemoglobin 29 PG (27-34); Mean Corpuscular Volume 88.2 FL (87-102); Mean Platelet Volume 8.9 FL (9.6-12.0); Monocytes # 0.6 10*3/uL (0.11-0.8); Monocytes % 7.3 % (1.7-12.7); Neutrophils # 4.7 10*3/uL (1.4-7.4); Platelet Count 314 T/CUMM (130-400); Red Blood Count 4.39 MC/CUMM (3.8-5.5); Red Cell Distribution Width 11.5 % (9.3-17.3); White Blood Count 8.7 T/CUMM (4-12)
[2018-10-28 05:50] LABS: Alanine Aminotransferase 43 U/L (13-56); Albumin 3.2 G/DL (3.4-5.0); Alkaline Phosphatase 97 U/L (45-117); Aspartate Amino Transferase 24 U/L (0-37); Bilirubin,Total < 0.39 MG/DL (0.2-1.0); Blood Urea Nitrogen 13 MG/DL (7-18); Calcium 8.9 MG/DL (8.5-10.1); Glucose 96 MG/DL (74-106); Osmolality,Calculated 274.7 MOS/KG (273-304); Potassium 3.8 MMOL/L (3.5-5.1); Sodium 138 MMOL/L (136-145); Total Protein 7.5 G/DL (6.4-8.3)
[2018-10-28] MEDS: ENOXAPARIN 40 MG/0.4 ML SYRINGE SUBCUT SCH (10:40)
[2018-10-28] MEDS: PANTOPRAZOLE 40 MG TABLET PO SCH (10:40)
[2018-10-28] MEDS: MEMANTINE 10 MG TABLET PO SCH ×2 (10:40→20:34)
[2018-10-28] MEDS: guaiFENesin/DM ER 600-30 MG TABLET PO SCH ×2 (10:40→20:34)
[2018-10-28] MEDS: VENLAFAXINE XR 75 MG CAPSULE PO SCH (10:40)
[2018-10-28] MEDS: TOPIRAMATE 25 MG TABLET PO SCH ×2 (10:40→20:34)
[2018-10-28] MEDS: FLUCONAZOLE 100 MG TABLET PO SCH (10:40)
[2018-10-28] MEDS: LEVOFLOXACIN INJ 750 MG in PREMIX 1 EACH IV SCH (10:41)
[2018-10-28] MEDS: MAGNESIUM OXIDE 400 MG TABLET PO SCH (20:34)
[2018-10-28] MEDS: BISACODYL 5 MG TABLET PO SCH (20:34)
[2018-10-28] MEDS: AMITRIPTYLINE 100 MG TABLET PO SCH (20:34)
[2018-10-29] MEDS: AMPICILLIN/SULBACTAM 3,000 MG in SODIUM CHLORIDE 0.9% 100 ML IV SCH ×3 (05:25→21:04)
[2018-10-29 06:30] LABS: Albumin 3.2 G/DL (3.4-5.0); Bilirubin,Total 0.4 MG/DL (0.2-1.0); Calcium 8.6 MG/DL (8.5-10.1); Osmolality,Calculated 279.4 MOS/KG (273-304); Potassium 3.8 MMOL/L (3.5-5.1); Total Protein 7.2 G/DL (6.4-8.3)
[2018-10-29 06:48] LABS: Basophils % 0.1 % (0.0-0.8); Hematocrit 39.8 VOL% (35.7-47.0); Hemoglobin 12.7 GM/DL (12.0-16.0); Immature Granulocytes % 0.5 %; Immature Granulocytes Absolute 0.04 #; Lymphocytes # 3.4 10*3/uL (1.4-4.0); Lymphocytes % 38.8 % (21.3-54.2); Mean Corpuscular HGB Conc 31.9 GM/DL (32-36); Mean Corpuscular Hemoglobin 28 PG (27-34); Mean Corpuscular Volume 88.6 FL (87-102); Mean Platelet Volume 9.2 FL (9.6-12.0); Monocytes # 0.7 10*3/uL (0.11-0.8); Neutrophils # 4.6 10*3/uL (1.4-7.4); Neutrophils % 52.6 % (38.7-73.9); Platelet Count 296 T/CUMM (130-400); Red Blood Count 4.49 MC/CUMM (3.8-5.5); Red Cell Distribution Width 11.8 % (9.3-17.3); White Blood Count 8.8 T/CUMM (4-12)
[2018-10-29] MEDS: ACETAMINOPHEN 325 MG TABLET PO PRN (08:46)
[2018-10-29] MEDS: FLUCONAZOLE 100 MG TABLET PO SCH (08:46)
[2018-10-29] MEDS: TOPIRAMATE 25 MG TABLET PO SCH ×2 (08:46→21:01)
[2018-10-29] MEDS: guaiFENesin/DM ER 600-30 MG TABLET PO SCH ×2 (08:46→21:01)
[2018-10-29] MEDS: ENOXAPARIN 40 MG/0.4 ML SYRINGE SUBCUT SCH (08:47)
[2018-10-29] MEDS: MEMANTINE 10 MG TABLET PO SCH ×2 (08:47→21:01)
[2018-10-29] MEDS: VENLAFAXINE XR 75 MG CAPSULE PO SCH (08:47)
[2018-10-29] MEDS: PANTOPRAZOLE 40 MG TABLET PO SCH (08:47)
[2018-10-29] MEDS: LEVOFLOXACIN INJ 750 MG in PREMIX 1 EACH IV SCH (09:00)
[2018-10-29] MEDS: MAGNESIUM OXIDE 400 MG TABLET PO SCH (21:01)
[2018-10-29] MEDS: BISACODYL 5 MG TABLET PO SCH (21:01)
[2018-10-29] MEDS: AMITRIPTYLINE 100 MG TABLET PO SCH (21:01)
[2018-10-30 05:10] LABS: Basophils % 0.1 % (0.0-0.8); Hematocrit 38.4 VOL% (35.7-47.0); Hemoglobin 12.3 GM/DL (12.0-16.0); Immature Granulocytes % 0.4 %; Immature Granulocytes Absolute 0.03 #; Lymphocytes # 3.5 10*3/uL (1.4-4.0); Lymphocytes % 47.1 % (21.3-54.2); Mean Corpuscular Hemoglobin 29 PG (27-34); Mean Corpuscular Volume 89.5 FL (87-102); Mean Platelet Volume 9.1 FL (9.6-12.0); Monocytes # 0.6 10*3/uL (0.11-0.8); Neutrophils # 3.3 10*3/uL (1.4-7.4); Neutrophils % 44.4 % (38.7-73.9); Platelet Count 285 T/CUMM (130-400); Red Blood Count 4.29 MC/CUMM (3.8-5.5); Red Cell Distribution Width 11.7 % (9.3-17.3); White Blood Count 7.5 T/CUMM (4-12)
[2018-10-30 05:15] LABS: Albumin 3.2 G/DL (3.4-5.0); Bilirubin,Total 0.5 MG/DL (0.2-1.0); Calcium 8.4 MG/DL (8.5-10.1); Osmolality,Calculated 278.4 MOS/KG (273-304); Potassium 3.7 MMOL/L (3.5-5.1); Total Protein 6.9 G/DL (6.4-8.3)
[2018-10-30] MEDS: AMPICILLIN/SULBACTAM 3,000 MG in SODIUM CHLORIDE 0.9% 100 ML IV SCH ×3 (05:16→21:53)
[2018-10-30] MEDS: ENOXAPARIN 40 MG/0.4 ML SYRINGE SUBCUT SCH (08:36)
[2018-10-30] MEDS: MEMANTINE 10 MG TABLET PO SCH ×2 (08:36→21:56)
[2018-10-30] MEDS: TOPIRAMATE 25 MG TABLET PO SCH ×2 (08:36→21:56)
[2018-10-30] MEDS: guaiFENesin/DM ER 600-30 MG TABLET PO SCH ×2 (08:36→21:56)
[2018-10-30] MEDS: PANTOPRAZOLE 40 MG TABLET PO SCH (08:36)
[2018-10-30] MEDS: VENLAFAXINE XR 75 MG CAPSULE PO SCH (08:36)
[2018-10-30] MEDS: LEVOFLOXACIN INJ 750 MG in PREMIX 1 EACH IV SCH (08:36)
[2018-10-30] MEDS: BISACODYL 5 MG TABLET PO SCH (21:55)
[2018-10-30] MEDS: MAGNESIUM OXIDE 400 MG TABLET PO SCH (21:55)
[2018-10-30] MEDS: AMITRIPTYLINE 100 MG TABLET PO SCH (21:56)
[2018-10-31] MEDS: AMPICILLIN/SULBACTAM 3,000 MG in SODIUM CHLORIDE 0.9% 100 ML IV SCH (05:11)
[2018-10-31] MEDS: TOPIRAMATE 25 MG TABLET PO SCH ×2 (08:30→21:29)
[2018-10-31] MEDS: MEMANTINE 10 MG TABLET PO SCH ×2 (08:30→21:29)
[2018-10-31] MEDS: PANTOPRAZOLE 40 MG TABLET PO SCH (08:31)
[2018-10-31] MEDS: ENOXAPARIN 40 MG/0.4 ML SYRINGE SUBCUT SCH (08:31)
[2018-10-31] MEDS: VENLAFAXINE XR 75 MG CAPSULE PO SCH (08:31)
[2018-10-31] MEDS: guaiFENesin/DM ER 600-30 MG TABLET PO SCH ×2 (08:31→21:29)
[2018-10-31] MEDS: BISACODYL 5 MG TABLET PO SCH (21:28)
[2018-10-31] MEDS: AMITRIPTYLINE 100 MG TABLET PO SCH (21:29)
[2018-10-31] MEDS: MAGNESIUM OXIDE 400 MG TABLET PO SCH (21:29)
[2018-11-01] MEDS ORDERED: LIDOCAINE 1%/EPI INJ 20 ML VIAL ONE (06:25)
[2018-11-01] MEDS ORDERED: OXYMETAZOLINE 0.05% NASAL SPRAY 15 ML BOTTLE ONE (06:25)
[2018-11-01] MEDS ORDERED: MUPIROCIN 2% OINT 22 GM TUBE TOP ONE (06:25)
[2018-11-01] MEDS: LACTATED RINGERS 1,000 ML IV SCH ×2 (10:55→12:40)
[2018-11-01] MEDS ORDERED: fentaNYL 100 MCG/2 ML VIAL ONE (12:20)
[2018-11-01] MEDS ORDERED: PROPOFOL 200 MG/20 ML VIAL IV ONE (12:22)
[2018-11-01] MEDS ORDERED: MIDAZOLAM 2 MG/2 ML VIAL ONE (12:22)
[2018-11-01] MEDS ORDERED: SEVOFLURANE 1 UNIT/15 MINUTE INH ONE (12:22)
[2018-11-01] MEDS ORDERED: DEXAMETHASONE 4 MG/1 ML VIAL ONE (12:23)
[2018-11-01] MEDS ORDERED: ONDANSETRON 4 MG/2 ML VIAL ONE (12:23)
[2018-11-01] MEDS ORDERED: KETOROLAC 30 MG/1 ML VIAL ONE (12:23)
[2018-11-01] MEDS ORDERED: ROCURONIUM 100 MG/10 ML VIAL IV ONE (12:23)
[2018-11-01] MEDS ORDERED: ACETAMINOPHEN 1,000 MG/100 ML VIAL IV ONE (12:23)
[2018-11-01] MEDS: guaiFENesin/DM ER 600-30 MG TABLET PO SCH ×2 (15:25→21:31)
[2018-11-01] MEDS: VENLAFAXINE XR 75 MG CAPSULE PO SCH (15:25)
[2018-11-01] MEDS: TOPIRAMATE 25 MG TABLET PO SCH ×2 (15:26→21:30)
[2018-11-01] MEDS: PANTOPRAZOLE 40 MG TABLET PO SCH (15:26)
[2018-11-01] MEDS: MEMANTINE 10 MG TABLET PO SCH ×2 (15:26→21:30)
[2018-11-01] MEDS: BISACODYL 5 MG TABLET PO SCH (21:30)
[2018-11-01] MEDS: MAGNESIUM OXIDE 400 MG TABLET PO SCH (21:31)
[2018-11-01] MEDS: AMITRIPTYLINE 100 MG TABLET PO SCH (21:31)
[2018-11-01] MEDS: ACETAMINOPHEN 325 MG TABLET PO PRN (21:32)
[2018-11-02] MEDS: guaiFENesin/DM ER 600-30 MG TABLET PO SCH (09:12)
[2018-11-02] MEDS: VENLAFAXINE XR 75 MG CAPSULE PO SCH (09:12)
[2018-11-02] MEDS: TOPIRAMATE 25 MG TABLET PO SCH (09:13)
[2018-11-02] MEDS: PANTOPRAZOLE 40 MG TABLET PO SCH (09:13)
[2018-11-02] MEDS: MEMANTINE 10 MG TABLET PO SCH (09:13)
[2018-11-02] MEDS: ENOXAPARIN 40 MG/0.4 ML SYRINGE SUBCUT SCH (10:37)
[2018-11-02 11:56] VITALS: BP 103/72
== END 2018-11-02 12:30 | disposition home or self-care (01) | DRG 854 ==
LOC: N.EDINP 19:25 → N.ED 19:25 → N.3E 10-15 00:07 → SUATTDRO 10-16 14:11 → N.2E 10-20 18:23
PROVIDERS: ADMIT Internal Medicine; ATTEND Internal Medicine

== ENCOUNTER 2018-11-09 09:58 | Observation (INO) ==
[2018-11-09 10:41] LABS: Hematocrit 43.5 VOL% (35.7-47.0); Hemoglobin 14.1 GM/DL (12.0-16.0); Immature Granulocytes % 0.3 %; Immature Granulocytes Absolute 0.03 #; Lymphocytes # 3.1 10*3/uL (1.4-4.0); Lymphocytes % 34.9 % (21.3-54.2); Mean Corpuscular HGB Conc 32.4 GM/DL (32-36); Mean Corpuscular Hemoglobin 29 PG (27-34); Mean Corpuscular Volume 88.4 FL (87-102); Mean Platelet Volume 8.6 FL (9.6-12.0); Monocytes # 0.7 10*3/uL (0.11-0.8); Monocytes % 7.8 % (1.7-12.7); Neutrophils # 5.1 10*3/uL (1.4-7.4); Platelet Count 286 T/CUMM (130-400); Red Blood Count 4.92 MC/CUMM (3.8-5.5); Red Cell Distribution Width 12.1 % (9.3-17.3); White Blood Count 8.9 T/CUMM (4-12)
[2018-11-09] MEDS: LACTATED RINGERS 1,000 ML IV SCH ×3 (10:53→20:43)
[2018-11-09 11:03] LABS: Alanine Aminotransferase 31 U/L (13-56); Albumin 4.1 G/DL (3.4-5.0); Alkaline Phosphatase 77 U/L (45-117); Aspartate Amino Transferase 13 U/L (0-37); Bilirubin,Total < 0.39 MG/DL (0.2-1.0); Blood Urea Nitrogen 6 MG/DL (7-18); Calcium 8.8 MG/DL (8.5-10.1); Glucose 98 MG/DL (74-106); Osmolality,Calculated 270.8 MOS/KG (273-304); Potassium 4.1 MMOL/L (3.5-5.1); Sodium 137 MMOL/L (136-145); Total Protein 8.3 G/DL (6.4-8.3)
[2018-11-09 12:30] LABS: Apearance,Urine CLOUDY (Clear); Bilirubin,Urine Negative (Negative); Blood, Urine Small mg/dL (Negative); Glucose,Urine (UA) Negative (Negative); Ketones,Urine Negative (Negative); Mucus,Urine Occasional /LPF (Occasional); Nitrite,Urine Negative (Negative); Protein,Urine Negative; RBC,Urine 12 /HPF (0-4); Squamous Epithelial Cell,Urine Occasional /HPF (0-10); Urine Color Yellow (Yellow); Urine Urobilinogen < 2.0 EU/DL (0.2-1.0); WBC,Urine <1 /HPF (0-6)
[2018-11-09 12:34] LABS: Barbiturates Screen,Urine Negative (Negative); Benzodiazepines Screen,Urine Negative (Negative); Cannabinoid Screen,Urine Negative (Negative); Opiate Screen,Urine Negative (Negative); Phencyclidine Screen,Urine Negative (Negative)
[2018-11-09] MEDS ORDERED: PROMETHAZINE 25 MG/1 ML VIAL IM PRN (13:01)
[2018-11-09] MEDS ORDERED: ONDANSETRON 4 MG/2 ML VIAL IV PRN (13:01)
[2018-11-09] MEDS ORDERED: LACTULOSE 20 GM/30 ML UDCUP PO PRN (13:01)
[2018-11-09] MEDS ORDERED: AMPICILLIN/SULBACTAM 3,000 MG in SODIUM CHLORIDE 0.9% 100 ML IV STA (13:31)
[2018-11-09 13:32] LABS: Thyroid Stimulating Hormone 1.24 uIU/ml (0.358-3.74)
[2018-11-09 13:53] LABS: Folate 6.7 NG/ML (5.4-24.0)
[2018-11-09 14:42] LABS: Hepatitis A Ab IgM Quant 0.14 Index; Hepatitis A Ab IgM Result Negative (Negative); Hepatitis B Core IgM Quant 0.08 Index; Hepatitis B Core IgM Result Negative (Negative); Hepatitis B Surface Ag Quant 0.19 Index; Hepatitis B Surface Ag Result Negative (Negative); Hepatitis C Virus Ab Quant 0.08 Index; Hepatitis C Virus Ab Result Negative (Negative)
[2018-11-09] MEDS: PANTOPRAZOLE 40 MG TABLET PO SCH (15:04)
[2018-11-09] MEDS: FOLIC ACID 1 MG TABLET PO SCH ×2 (15:04→20:43)
[2018-11-09] MEDS: LACTULOSE 20 GM/30 ML UDCUP PO SCH ×3 (15:04→21:30)
[2018-11-09] MEDS: MAGNESIUM OXIDE 400 MG TABLET PO SCH (20:43)
[2018-11-09] MEDS: MEMANTINE 10 MG TABLET PO SCH (20:43)
[2018-11-10] MEDS: LACTATED RINGERS 1,000 ML IV SCH ×2 (02:08→07:28)
[2018-11-10] MEDS: LACTULOSE 20 GM/30 ML UDCUP PO SCH ×2 (02:08→05:50)
[2018-11-10 05:15] LABS: Hemoglobin 11.3 GM/DL (12.0-16.0); Immature Granulocytes % 0.4 %; Immature Granulocytes Absolute 0.03 #; Lymphocytes # 2.4 10*3/uL (1.4-4.0); Lymphocytes % 33.7 % (21.3-54.2); Mean Corpuscular HGB Conc 32.3 GM/DL (32-36); Mean Corpuscular Hemoglobin 29 PG (27-34); Mean Corpuscular Volume 88.6 FL (87-102); Mean Platelet Volume 8.9 FL (9.6-12.0); Monocytes # 0.6 10*3/uL (0.11-0.8); Monocytes % 8.4 % (1.7-12.7); Neutrophils # 4.1 10*3/uL (1.4-7.4); Neutrophils % 57.5 % (38.7-73.9); Platelet Count 205 T/CUMM (130-400); Red Blood Count 3.95 MC/CUMM (3.8-5.5); Red Cell Distribution Width 11.9 % (9.3-17.3); White Blood Count 7.1 T/CUMM (4-12)
[2018-11-10 05:53] LABS: Albumin 3.1 G/DL (3.4-5.0); Bilirubin,Total 1.2 MG/DL (0.2-1.0); Calcium 8.1 MG/DL (8.5-10.1); Osmolality,Calculated 273.5 MOS/KG (273-304); Potassium 3.9 MMOL/L (3.5-5.1); Risk Ratio 6.5; Total Protein 6.2 G/DL (6.4-8.3)
[2018-11-10] MEDS ORDERED: LACTULOSE 20 GM/30 ML UDCUP PO SCH (09:00)
[2018-11-10] MEDS: AMPICILLIN/SULBACTAM 3,000 MG in SODIUM CHLORIDE 0.9% 100 ML IV SCH ×3 (09:26→21:03)
[2018-11-10] MEDS: FOLIC ACID 1 MG TABLET PO SCH ×2 (09:28→21:02)
[2018-11-10] MEDS: PANTOPRAZOLE 40 MG TABLET PO SCH (09:28)
[2018-11-10] MEDS: MEMANTINE 10 MG TABLET PO SCH ×2 (09:28→21:02)
[2018-11-10] MEDS: ACETAMINOPHEN 325 MG TABLET PO PRN ×2 (09:33→21:02)
[2018-11-10] MEDS: MAGNESIUM OXIDE 400 MG TABLET PO SCH (21:02)
[2018-11-11] MEDS: ACETAMINOPHEN 325 MG TABLET PO PRN ×2 (02:55→09:19)
[2018-11-11] MEDS: AMPICILLIN/SULBACTAM 3,000 MG in SODIUM CHLORIDE 0.9% 100 ML IV SCH ×2 (02:55→09:18)
[2018-11-11 08:27] LABS: Total Protein (Chem) 8.3 G/DL (6.4-8.3)
[2018-11-11 08:28] LABS: Albumin (SPE) 5.3 G/DL (3.2-5.3); Albumin (SPE) Rel % 64.4 %; Alpha 1 (SPE) 0.2 G/DL (0.1-0.4); Alpha 1 (SPE) Rel % 2.6 %; Alpha 2 (SPE) 0.8 G/DL (0.4-1.0); Alpha 2 (SPE) Rel % 9.9 %; Beta (SPE) 0.8 G/DL (0.5-1.1); Beta (SPE) Rel % 9.9 %; Gamma (SPE) 1.1 G/DL (0.7-1.7); Gamma (SPE) Rel % 13.8 %
[2018-11-11] MEDS: FOLIC ACID 1 MG TABLET PO SCH (09:18)
[2018-11-11] MEDS: MEMANTINE 10 MG TABLET PO SCH (09:18)
[2018-11-11] MEDS: PANTOPRAZOLE 40 MG TABLET PO SCH (09:18)
[2018-11-11 12:23] VITALS: BP 127/92
== END 2018-11-11 12:35 | disposition home or self-care (01) ==
LOC: N.ED 09:58 → N.EDINP 09:58 → SUATTDRO 13:01 → N.3E 14:21
PROVIDERS: ADMIT Internal Medicine Cardiovascular Disease; ATTEND Internal Medicine

== ENCOUNTER 2019-06-05 14:12 | Inpatient (IN) ==
[2019-06-05] MEDS ORDERED: SODIUM CHLORIDE 0.9% 1,000 ML IV STA (16:16)
[2019-06-05] MEDS ORDERED: ONDANSETRON 4 MG/2 ML VIAL IV STA (16:16)
[2019-06-05] MEDS ORDERED: HYDROmorphone 2 MG/1 ML VIAL IV STA (16:16)
[2019-06-05 16:45] LABS: Basophils % 0.1 % (0.0-0.8); Hematocrit 41.3 VOL% (35.7-47.0); Hemoglobin 13.5 GM/DL (12.0-16.0); Immature Granulocytes % 0.2 %; Immature Granulocytes Absolute 0.02 #; Lymphocytes # 2.8 10*3/uL (1.4-4.0); Mean Corpuscular HGB Conc 32.7 GM/DL (32-36); Mean Corpuscular Volume 89.8 FL (87-102); Mean Platelet Volume 8.9 FL (9.6-12.0); Monocytes % 6.7 % (1.7-12.7); Platelet Count 273 T/CUMM (130-400); Red Cell Distribution Width 11.9 % (9.3-17.3); White Blood Count 9.2 T/CUMM (4-12)
[2019-06-05 17:07] LABS: Alanine Aminotransferase 34 U/L (13-56); Albumin 3.9 G/DL (3.4-5.0); Alkaline Phosphatase 72 U/L (45-117); Aspartate Amino Transferase 21 U/L (0-37); Bilirubin,Total < 0.39 MG/DL (0.2-1.0); Blood Urea Nitrogen 13 MG/DL (7-18); Calcium 8.6 MG/DL (8.5-10.1); Glucose 103 MG/DL (74-106); Osmolality,Calculated 282.1 MOS/KG (273-304); Total Protein 7.8 G/DL (6.4-8.3)
[2019-06-05 17:10] LABS: Apearance,Urine Slightly Hazy (Clear); Bilirubin,Urine Negative (Negative); Blood, Urine Negative (Negative); Glucose,Urine (UA) Negative (Negative); Ketones,Urine Negative (Negative); Mucus,Urine Occasional /LPF (Occasional); Nitrite,Urine Negative (Negative); Protein,Urine Negative; Squamous Epithelial Cell,Urine Occasional /HPF (0-10); Urine Color Yellow (Yellow); Urine Specific Gravity 1.017 (1.001-1.035); Urine Urobilinogen < 2.0 EU/DL (0.2-1.0); WBC,Urine 1 /HPF (0-6)
[2019-06-05 17:15] LABS: Barbiturates Screen,Urine Negative (Negative); Benzodiazepines Screen,Urine Negative (Negative); Cannabinoid Screen,Urine Negative (Negative); Opiate Screen,Urine Negative (Negative); Phencyclidine Screen,Urine Negative (Negative)
[2019-06-05] MEDS ORDERED: ONDANSETRON 4 MG/2 ML VIAL IV PRN (18:15)
[2019-06-05] MEDS: LACTATED RINGERS 1,000 ML IV SCH (19:53)
[2019-06-05] MEDS: ENOXAPARIN 40 MG/0.4 ML SYRINGE SUBCUT SCH (20:01)
[2019-06-05] MEDS: MAGNESIUM OXIDE 400 MG TABLET PO SCH (22:09)
[2019-06-05] MEDS: ACETAMINOPHEN 325 MG TABLET PO PRN (22:09)
[2019-06-05] MEDS: MEMANTINE 10 MG TABLET PO SCH (22:09)
[2019-06-06] MEDS: LACTATED RINGERS 1,000 ML IV SCH (10:10)
[2019-06-06] MEDS: BISACODYL 5 MG TABLET PO SCH (10:10)
[2019-06-06] MEDS: MEMANTINE 10 MG TABLET PO SCH ×2 (10:10→20:43)
[2019-06-06] MEDS: PANTOPRAZOLE 40 MG TABLET PO SCH (10:10)
[2019-06-06] MEDS ORDERED: RIZATRIPTAN 10 MG PO PRN (12:08)
[2019-06-06] MEDS ORDERED: NON-FORMULARY MEDICATION (Omeprazole 20 MG) PO SCH (12:15)
[2019-06-06] MEDS ORDERED: VENLAFAXINE 225 MG PO SCH (12:15)
[2019-06-06] MEDS ORDERED: NON-FORMULARY MEDICATION (Topiramate 50 MG) PO SCH (12:15)
[2019-06-06] MEDS: hydrOXYzine HCL 25 MG TABLET PO SCH (12:29)
[2019-06-06] MEDS: TOPIRAMATE 25 MG TABLET PO SCH ×2 (12:29→20:43)
[2019-06-06] MEDS: RIZATRIPTAN ODT 5 MG TABLET PO PRN (12:30)
[2019-06-06] MEDS: ACETAMINOPHEN 325 MG TABLET PO PRN (16:52)
[2019-06-06] MEDS ORDERED: BISACODYL 10 MG SUPP RECTAL ONE (17:48)
[2019-06-06] MEDS: ENOXAPARIN 40 MG/0.4 ML SYRINGE SUBCUT SCH (18:34)
[2019-06-06] MEDS: MAGNESIUM OXIDE 400 MG TABLET PO SCH (20:43)
[2019-06-06] MEDS: traZODone 50 MG TABLET PO SCH (20:43)
[2019-06-06] MEDS ORDERED: traZODone 50 MG TABLET PO SCH (21:00)
[2019-06-07] MEDS: LACTATED RINGERS 1,000 ML IV SCH ×2 (02:42→18:10)
[2019-06-07 08:36] LABS: Calcium 8.4 MG/DL (8.5-10.1); Osmolality,Calculated 276.4 MOS/KG (273-304)
[2019-06-07] MEDS: VENLAFAXINE XR 75 MG CAPSULE PO SCH (09:28)
[2019-06-07] MEDS: TOPIRAMATE 25 MG TABLET PO SCH ×2 (09:28→21:01)
[2019-06-07] MEDS: hydrOXYzine HCL 25 MG TABLET PO SCH (09:28)
[2019-06-07] MEDS: MEMANTINE 10 MG TABLET PO SCH ×2 (09:29→21:01)
[2019-06-07] MEDS: BISACODYL 5 MG TABLET PO SCH ×3 (09:29→18:27)
[2019-06-07] MEDS: PANTOPRAZOLE 40 MG TABLET PO SCH (09:30)
[2019-06-07] MEDS: METOCLOPRAMIDE 10 MG/2 ML VIAL IV SCH ×2 (11:24→18:27)
[2019-06-07] MEDS ORDERED: POLYETHYLENE GLYCOL POWDER 255 GM BOTTLE PO ONE (16:00)
[2019-06-07] MEDS: RIZATRIPTAN ODT 5 MG TABLET PO PRN (18:39)
[2019-06-07] MEDS: MAGNESIUM OXIDE 400 MG TABLET PO SCH (21:00)
[2019-06-07] MEDS: traZODone 50 MG TABLET PO SCH (21:01)
[2019-06-08] MEDS: METOCLOPRAMIDE 10 MG/2 ML VIAL IV SCH ×4 (00:29→18:12)
[2019-06-08] MEDS: BISACODYL 5 MG TABLET PO SCH (03:06)
[2019-06-08] MEDS: LACTATED RINGERS 1,000 ML IV SCH ×2 (06:17→19:19)
[2019-06-08] MEDS: VENLAFAXINE XR 75 MG CAPSULE PO SCH (08:56)
[2019-06-08] MEDS: TOPIRAMATE 25 MG TABLET PO SCH ×2 (08:56→21:41)
[2019-06-08] MEDS: hydrOXYzine HCL 25 MG TABLET PO SCH (08:57)
[2019-06-08] MEDS: PANTOPRAZOLE 40 MG TABLET PO SCH (08:57)
[2019-06-08] MEDS: MEMANTINE 10 MG TABLET PO SCH ×2 (08:57→21:41)
[2019-06-08] MEDS: LINACLOTIDE 145 MCG CAPSULE PO SCH (13:38)
[2019-06-08] MEDS ORDERED: ACETAMINOPHEN 325 MG TABLET PO PRN (14:05)
[2019-06-08] MEDS: traMADol 50 MG TABLET PO PRN ×2 (14:29→22:42)
[2019-06-08] MEDS ORDERED: MAGNESIUM CITRATE 300 ML BOTTLE PO ONE (21:00)
[2019-06-08] MEDS: MAGNESIUM OXIDE 400 MG TABLET PO SCH (21:41)
[2019-06-08] MEDS: traZODone 50 MG TABLET PO SCH (21:41)
[2019-06-09] MEDS: METOCLOPRAMIDE 10 MG/2 ML VIAL IV SCH ×4 (01:26→17:37)
[2019-06-09] MEDS ORDERED: PROPOFOL 200 MG/20 ML VIAL IV ONE (08:36)
[2019-06-09] MEDS ORDERED: LIDOCAINE 100 MG/5 ML SYRINGE ONE (08:36)
[2019-06-09] MEDS: TOPIRAMATE 25 MG TABLET PO SCH ×2 (12:23→20:44)
[2019-06-09] MEDS: MEMANTINE 10 MG TABLET PO SCH ×2 (12:23→20:45)
[2019-06-09] MEDS: hydrOXYzine HCL 25 MG TABLET PO SCH (12:23)
[2019-06-09] MEDS: PANTOPRAZOLE 40 MG TABLET PO SCH (12:23)
[2019-06-09] MEDS: VENLAFAXINE XR 75 MG CAPSULE PO SCH (12:24)
[2019-06-09] MEDS: LINACLOTIDE 145 MCG CAPSULE PO SCH (12:24)
[2019-06-09] MEDS: LACTATED RINGERS 1,000 ML IV SCH (17:37)
[2019-06-09] MEDS: MAGNESIUM OXIDE 400 MG TABLET PO SCH (20:45)
[2019-06-09] MEDS: traZODone 50 MG TABLET PO SCH (20:48)
[2019-06-10] MEDS: LACTATED RINGERS 1,000 ML IV SCH (05:34)
[2019-06-10] MEDS: VENLAFAXINE XR 75 MG CAPSULE PO SCH (08:44)
[2019-06-10] MEDS: LINACLOTIDE 145 MCG CAPSULE PO SCH (08:44)
[2019-06-10] MEDS: hydrOXYzine HCL 25 MG TABLET PO SCH (08:45)
[2019-06-10] MEDS: PANTOPRAZOLE 40 MG TABLET PO SCH (08:45)
[2019-06-10] MEDS: TOPIRAMATE 25 MG TABLET PO SCH (08:45)
[2019-06-10 11:15] VITALS: BP 124/77
== END 2019-06-10 11:00 | disposition home or self-care (01) | DRG 395 ==
LOC: N.ED 14:12 → N.EDINP 14:12 → N.5E 19:14 → SUATTDRO 06-07 13:09
PROVIDERS: ADMIT Internal Medicine Geriatric Medicine